=== PATIENT | male | born 1970 | race Caucasian/White ===

== ENCOUNTER → 2019-11-12 09:51 | Outpatient (BNVA) | payer OTHER, SELFPAY | PROVIDERS: PCP Internal Medicine; Visit Provider Internal Medicine | DX: F10.10 Alcohol abuse, uncomplicated (principal) | CPT/HCPCS: 96372; 99212 ==

== ENCOUNTER → 2019-12-27 11:40 | Outpatient (BNVA) | payer OTHER, SELFPAY | PROVIDERS: PCP Internal Medicine; Referring Provider Internal Medicine; Visit Provider Surgery | DX: L72.9 Follicular cyst of the skin and subcutaneous tissue, unspecified (principal); Z85.47 Personal history of malignant neoplasm of testis; Z90.79 Acquired absence of other genital organ(s) | CPT/HCPCS: 99202 ==

== ENCOUNTER 2020-01-09 12:49 | Outpatient (REF) | payer OTHER, SELFPAY ==
--- NOTE | 2020-01-09 12:51 | US_ITS ---
EXAMINATION: US SCROTUM CLINICAL INFORMATION: Follicular cyst of the skin and subcutaneous tissue, unspecified. COMPARISON: None TECHNIQUE: A sonogram of the scrotum was performed assessing novoa-scale appearance and color Doppler flow. Spectral Doppler analysis of the arterial and venous flow were performed in the testes bilaterally. FINDINGS: RIGHT: Surgically absent. LEFT: Left testicle measures 5.0 x 1.9 x 2.9 cm, volume 13.4 mL. A prominent vein is seen in the area of patient's palpable region. No focal lesion seen in the scrotal sac. Punctate echogenic calcifications are seen. Spectral Doppler analysis of the arterial and venous flow is normal in the left testis. Left epididymal head is normal in size. A small left epididymal head cyst is seen measuring 0.62 x 0.34 x 0.5 cm. No left hydrocele or varicocele is seen. Left epididymal Doppler flow is normal. US/US scrotum IMPRESSION: Small punctate echogenic calcifications in the left testes suggesting microlithiasis. Small left epididymal cyst. No large mass, hydrocele or varicocele seen.
== END 2020-01-09 12:50 | disposition home or self-care (01) ==
LOC: HO.US 12:49
PROVIDERS: Visit Provider Surgery
DX: L72.9 Follicular cyst of the skin and subcutaneous tissue, unspecified (principal)
CPT/HCPCS: 76870

== ENCOUNTER → 2020-01-15 13:00 | Outpatient (BNVA) | payer OTHER, SELFPAY | PROVIDERS: PCP Internal Medicine; Visit Provider Surgery | DX: N50.89 Other specified disorders of the male genital organs (principal) | CPT/HCPCS: 99212 ==

== ENCOUNTER 2020-03-11 15:37 | Outpatient (REF) | payer OTHER, SELFPAY | END 2020-03-11 15:38 | disposition home or self-care (01) | LOC: HO.LAB 15:37 | PROVIDERS: Visit Provider Internal Medicine | DX: Z20.822 Contact with and (suspected) exposure to COVID-19 (principal) | CPT/HCPCS: 36415; C9803; U0003; U0005 ==